=== PATIENT | male | born 1970 | race Hispanic/Latino ===

== ENCOUNTER 2017-12-22 23:35 | Emergency (ER) | payer OTHER ==
[2017-12-23 00:29] VITALS: TEMP 98.4
--- NOTE | 2017-12-23 02:24 | C.PDOC ---
History Of Present Illness 47yo male, comes to ER for evaluation of left ankle pain after he twisted and injured it 2 days ago. Patient states he has been able to bear weight but the ankle has been increasingly swollen, prompting the ER visit. He denies any weakness, numbness or tingling and offers no other medical complaints. Time Seen by Provider: 12/23/17 00:40 Chief Complaint (Nursing): Lower Extremity Problem/Injury History Per: Patient History/Exam Limitations: no limitations Onset/Duration Of Symptoms: Days (2) Current Symptoms Are (Timing): Still Present - Ankle/Foot Description Of Injury: Twisted Past Medical History Reviewed: Historical Data, Nursing Documentation, Vital Signs Vital Signs: Last Vital Signs Temp 98.4 F 12/23/17 00:24 Pulse 80 12/23/17 02:35 Resp 20 12/23/17 02:35 BP 121/70 12/23/17 02:35 Pulse Ox 96 12/23/17 03:29 - Medical History PMH: No Chronic Diseases Surgical History: No Surg Hx Family History: States: No Known Family Hx - Social History Hx Alcohol Use: Yes Hx Substance Use: No - Immunization History Hx Tetanus Toxoid Vaccination: No Hx Influenza Vaccination: Yes Hx Pneumococcal Vaccination: No Review Of Systems Musculoskeletal: Positive for: Foot Pain (left ankle pain) Neurological: Negative for: Weakness, Numbness Physical Exam - Physical Exam Appears: Non-toxic Skin: Warm, Dry Head: Normacephalic Eye(s): bilateral: Normal Inspection Neck: Supple Chest: Symmetrical Cardiovascular: Rhythm Regular Respiratory: Normal Breath Sounds Extremity: Normal ROM, No Calf Tenderness, Capillary Refill (< 2 seconds), No Deformity, Swelling (moderate swelling and tenderness to bilateral left malleolar area.) Pulses: Left Dorsalis Pedis: Normal, Right Dorsalis Pedis: Normal Neurological/Psych: Oriented x3, Normal Motor, Normal Sensation Gait: Steady ED Course And Treatment O2 Sat by Pulse Oximetry: 96 (RA) Pulse Ox Interpretation: Normal - Other Rad XR Left ankle X-Ray: Interpreted by Me, Viewed By Me Interpretation: Soft tissue swelling noted. No fractures or dislocations noted. Progress Note: Patient given Motrin 800mg PO. XR left ankle ordered. XR reviewed with no acute findings. Patient's ankle placed in erik wrap and air cast by fuel technician and checked by me. Post application neurovascular exam is normal. Patient also given crutch training. Patient informed to follow up with orthopedist. Disposition - Disposition Referrals: 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 - Scribe Statement The provider has reviewed the documentation as recorded by the Zac Dickson Provider Attestation: All medical record entries made by the Zac were at my direction and personally dictated by me. I have reviewed the chart and agree that the record accurately reflects my personal performance of the history, physical exam, medical decision making, and the department course for this patient. I have also personally directed, reviewed, and agree with the discharge instructions and disposition.
[2017-12-23 02:52] VITALS: BP 121/70; PULSE 80; RESP 20
[2017-12-23 03:29] VITALS: O2SAT 96
--- NOTE | 2017-12-23 09:26 | RAD ---
Date of service: 12/23/2017 PROCEDURE: Left Ankle Radiographs. HISTORY: ankle pain s/p twisting injury COMPARISON: None FINDINGS: BONES: Normal. No fracture. JOINTS: Normal. No osteoarthritis. Ankle mortise maintained. Talar dome intact SOFT TISSUES: Normal. OTHER FINDINGS: None. IMPRESSION: Normal left ankle radiographs.
== END 2017-12-23 02:35 | disposition home or self-care (01) ==
LOC: C.ER 23:35
DX: S93.402A Sprain of unspecified ligament of left ankle, initial encounter (principal); X50.9XXA Other and unspecified overexertion or strenuous movements or postures, initial encounter